=== PATIENT | female | born 1950 | race Caucasian/White ===

== ENCOUNTER 2017-04-20 08:56 | Emergency (ER) | payer MEDICARE, OTHER ==
[2017-04-20 09:43] LABS: BASO # 0.1 x10^3/uL (0.0-0.2); BASO % 1 % (0-3); EOS % 0 % (0-3); HEMATOCRIT 43.7 % (36.0-47.0); HEMOGLOBIN 14.7 g/dL (12.0-15.5); LYMPH % 8 % (24-48); MEAN CORPUSCULAR HEMOGLOBIN 30 pg (25-35); MEAN CORPUSCULAR HGB CONC 34 g/dL (31-37); MEAN CORPUSCULAR VOLUME 90 fL (79-100); MONO # 0.6 x10^3/uL (0.0-1.1); MONO % 5 % (0-9); NEUT # 10.5 x10^3uL (1.8-7.7); NEUT % 87 % (31-73); PLATELET COUNT 224 x10^3/uL (140-400); RED BLOOD COUNT 4.85 x10^6/uL (3.50-5.40); RED CELL DISTRIBUTION WIDTH 13.5 % (11.5-14.5); WHITE BLOOD COUNT 12.1 x10^3/uL (4.0-11.0)
[2017-04-20 09:44] LABS: ADD MAN DIFF? YES
[2017-04-20] MEDS: IV NORMAL SALINE 1000ML BAG 1,000 ML IV ×2 (09:46)
[2017-04-20] MEDS: KETOROLAC 30 MG/ML INJ. IV ×2 (09:46)
[2017-04-20 09:49] LABS: ANION GAP 8 (6-14); BLOOD UREA NITROGEN 26 mg/dL (7-20); BUN/CREATININE RATIO 29 (6-20); CARBON DIOXIDE 33 mmol/L (21-32); CHLORIDE 100 mmol/L (98-107); CREATININE 0.9 mg/dL (0.6-1.0); GFR 62.5; GLUCOSE 120 mg/dL (70-99); SODIUM 141 mmol/L (136-145)
[2017-04-20 09:52] LABS: BILIRUBIN,URINE NEGATIVE (NEG); CLARITY,URINE CLEAR; COLOR,URINE YELLOW; GLUCOSE,URINE NEGATIVE (NEG); NITRITE,URINE NEGATIVE (NEG); PH,URINE 5.5; PROTEIN,URINE NEGATIVE (NEG-TRACE); UROBILINOGEN,URINE 0.2 mg/dL (0.2 mg/dL)
[2017-04-20 09:53] LABS: BACTERIA,URINE 0 /HPF (0-FEW); SQUAMOUS EPITHELIAL CELL,UR FEW /LPF; WBC,URINE 0 /HPF (0-4)
[2017-04-20 09:56] LABS: ALBUMIN 3.8 g/dL (3.4-5.0); ALBUMIN/GLOBULIN RATIO 1.2 (1.0-1.7); ALK PHOS 63 U/L (46-116); ALT (SGPT) 41 U/L (14-59); AST (SGOT) 27 U/L (15-37); TOTAL BILIRUBIN 0.4 mg/dL (0.2-1.0); TOTAL PROTEIN 6.9 g/dL (6.4-8.2)
[2017-04-20 13:12] LABS: % BANDS 4 % (0-9); % LYMPHS 6 % (24-48); % MONOS 3 % (0-10); % SEGS 87 % (35-66)
[2017-04-20 13:15] LABS: PLT ESTIMATE ADEQUATE (ADEQUATE)
== END 2017-04-20 12:38 | disposition home or self-care (01) ==
LOC: ER 08:56
DX: N20.0 Calculus of kidney (principal); I10 Essential (primary) hypertension; E78.00 Pure hypercholesterolemia, unspecified; Z90.710 Acquired absence of both cervix and uterus; Z88.0 Allergy status to penicillin; Z88.1 Allergy status to other antibiotic agents; Z91.041 Radiographic dye allergy status
CPT/HCPCS: 36415; 74176; 80053; 81001; 85007; 85025; 96361; 96374; 99285-25; J1885; J7030

== ENCOUNTER → 2017-11-27 | Outpatient (CLI) | payer MEDICARE, OTHER ==
[2017-04-20 09:20] VITALS: BP 155/70
[~2017-11-27] MED LIST: IBUP-1060 PO
--- NOTE | 2017-11-27 12:11 | RAD ---
KUB, 11/27/2017: HISTORY: Right-sided kidney stone The abdominal gas pattern is unremarkable. There is a 1.1 cm radiopacity projected over the right renal pelvis compatible with the patient's known intrarenal calculus, as delineated on the 04/20/2017 CT exam. No other abnormal abdominal calcification is seen. There is no evidence of organomegaly. There is a mild thoracolumbar scoliosis with mild scattered degenerative changes. IMPRESSION: 1. Persistent radiopaque calculus in the right renal pelvis. 2. No acute abdominal abnormality is detected. Electronically signed by: Alex Leal MD (11/27/2017 12:07 PM) [facility]
== END | disposition home or self-care (01) ==
LOC: RAD 09:38
PROVIDERS: ATTEND Urology
DX: N20.0 Calculus of kidney (principal); M41.85 Other forms of scoliosis, thoracolumbar region; M47.895 Other spondylosis, thoracolumbar region; I10 Essential (primary) hypertension; E78.00 Pure hypercholesterolemia, unspecified; Z90.710 Acquired absence of both cervix and uterus; Z88.0 Allergy status to penicillin; Z88.1 Allergy status to other antibiotic agents
CPT/HCPCS: 74018

== ENCOUNTER → 2017-12-31 | Outpatient (CLI) | payer MEDICARE, OTHER ==
[2017-04-20 09:20] VITALS: BP 155/70
--- NOTE | 2017-12-31 14:56 | RAD ---
EXAM: Supine AP view of the abdomen DATE: 12/31/2017 10:36 AM INDICATION: Follow up to rt sided kidney stone. COMPARISON: No Prior FINDINGS: No abnormal small or large bowel dilatation. Large volume colonic stool content. No abnormal soft tissue mass effect. A 9 mm calcification is seen projecting over the expected inferior right kidney, grossly stable to 11/27/[address] and 18. No definite additional calculus or suspicious renal tract calcification is seen by radiograph. Evaluation for free intraperitoneal gas is limited on this supine exam. IMPRESSION: 1. No evidence for bowel obstruction. 2. Calcification projecting of the right kidney is stable likely the calculus seen on prior CT and radiographs Electronically signed by: Kaleb Whitehead MD (12/31/2017 2:53 PM) [id number]
== END | disposition home or self-care (01) ==
LOC: RAD 10:16
PROVIDERS: ATTEND Urology
DX: N20.0 Calculus of kidney (principal)
CPT/HCPCS: 74018

== ENCOUNTER → 2018-05-09 | Outpatient (CLI) | payer MEDICARE, OTHER ==
[2017-04-20 09:20] VITALS: BP 155/70
--- NOTE | 2018-05-09 10:32 | RAD ---
CT study of the abdomen and pelvis without contrast Clinical indications: History of stones and ureteral stent placement. TECHNIQUE: Noncontrast helical CT scanning of the abdomen and pelvis was performed. Without contrast, the sensitivity to detect organ pathology and GI tract pathology is decreased. PQRS compliance Statement One or more of the following individualized dose reduction techniques were utilized for this study: 1. Automated exposure control 2. Adjustment of the mA and/or kV according to patient size 3. Use of iterative reconstruction technique COMPARISON: April 20, 2017. FINDINGS: The liver and spleen and pancreas are homogeneous in appearance on this noncontrast study. The gallbladder is normal and no extrahepatic biliary ductal dilatation is seen. No adrenal mass is evident. There is a stone within the right renal pelvis measuring 9 mm in size. This otherwise seen within the lower pole infundibulum on the previous study. No hydronephrosis or hydroureter or ureteral stone is evident. Parapelvic cysts of the left kidney are seen. Urinary bladder is not abnormally distended. The urinary bladder wall is smooth. The uterus is surgically absent. No focal aneurysmal dilatation of the abdominal aorta is seen. No enlarged abdominal or pelvic lymphadenopathy is evident. No obstructive bowel pattern is evident. The appendix is normal and unchanged from the previous study. No free intraperitoneal air or free fluid or mesenteric edema is seen. No lung base consolidation is evident. No lytic process is seen. IMPRESSION: Nonobstructing right renal stone. No hydronephrosis or hydroureter or ureteral stone is evident. Left parapelvic cysts. Electronically signed by: Cornell Cerda MD (05/09/2018 10:30 AM) [facility]
== END | disposition home or self-care (01) ==
LOC: CT 07:34
PROVIDERS: ATTEND Urology
DX: N20.0 Calculus of kidney (principal); N94.89 Other specified conditions associated with female genital organs and menstrual cycle
CPT/HCPCS: 74176

== ENCOUNTER → 2019-01-09 | Outpatient (CLI) | payer MEDICARE, OTHER ==
[2017-04-20 09:20] VITALS: BP 155/70
--- NOTE | 2019-01-09 16:22 | RAD ---
KUB History: 6 month follow-up right kidney stone. Technique: Supine view the abdomen. Comparison: December 31, [address] May 09, 2018 Findings: Previous identified right renal pelvis calcification is not well seen. No pathologic ossifications. Nonobstructive bowel gas pattern. Mild leftward curvature of the lumbar spine with multilevel spondylosis. Impression: 1. Previously identified right renal pelvis calculus is not identified on radiograph. Electronically signed by: Obinna Powers DO (01/09/2019 4:19 PM) [facility]
== END | disposition home or self-care (01) ==
LOC: RAD 08:56
PROVIDERS: ATTEND Urology
DX: M47.816 Spondylosis without myelopathy or radiculopathy, lumbar region (principal)
CPT/HCPCS: 74018

== ENCOUNTER → 2019-12-23 | Outpatient (CLI) | payer MEDICARE, OTHER ==
[2017-04-20 09:20] VITALS: BP 155/70
--- NOTE | 2019-12-23 08:54 | RAD ---
KUB History: Kidney stone Comparison: January 09, 2019 Findings: Single supine AP view of the abdomen is submitted. No convincing renal calculus is identified, right renal shadow poorly seen due to bowel gas and stool. No new convincing calculus is identified expected course of ureters. There is retained stool variably throughout colon. There is again lumbar levoscoliosis. Impression: 1. No convincing urolithiasis is identified by radiographs, limitations of exam due to retained stool in the colon. Electronically signed by: Chico Zavaleta MD (12/23/2019 8:51 AM) [facility]
== END ==
LOC: RAD 08:20
PROVIDERS: ATTEND Urology
DX: N20.0 Calculus of kidney (principal); M41.86 Other forms of scoliosis, lumbar region
CPT/HCPCS: 74018